=== PATIENT | female | born 1965 | race Caucasian/White ===

== ENCOUNTER 2016-08-25 09:29 | Emergency (ER) | payer OTHER ==
[~2016-08-25] VITALS: Ht 167.6 cm; Wt 70.9 kg
[2016-08-25 09:40] VITALS: Ht 167.6 cm; Wt 70.9 kg
[2016-08-25] MEDS ORDERED: ACETAMINOPHEN 325 MG TAB PO STA (10:19)
--- NOTE | 2016-08-25 10:25 | EMERGENCY ROOM VISIT NOTE ---
History Report prepared by Opal: Gunner Wong Under the Supervision of: Dr. Beni Lancaster M.D. First contact with patient: 10:13 Chief Complaint: HEAD INJURY (MINOR) Stated Complaint: HEAD INJURY History of Present Illness The patient is a 51 year old female who presents to the Emergency Room with complaints of a head injury that occurred 1 hour ago. She rates her current pain a 9/10 in severity. She was spectating a volleyball game at this time, when she got struck in the head with a volleyball. She notes that at this time, she did not lose consciousness. However, she did have globalized numbness when this occurred, and she could not talk. These symptoms have resolved at this time. She denies any visual changes, numbness, dental pain, epistaxis, ear drainage, chest pain, neck pain, abdominal pain, or back pain. She has a past medical history of a thyroid issue, vertigo, and migraines. She notes that she has been healthy recently. Source of History: patient, friend Onset: 1 hour ago Position: head Symptom Intensity: 9/10 Quality: ache Timing: constant Associated Symptoms: No LOC, No abdominal pain, No back pain, No chest pain , No neck pain, No numbness Note: She denies any epistaxis, ear drainage, or dental pain. Review of Systems See HPI for pertinent positives & negatives. A total of 10 systems reviewed and were otherwise negative. Past Medical & Surgical Medical Problems: (1) Migraines (2) Thyroid disease (3) Vertigo Old medical records were reviewed. Nurse's notes were reviewed and I agree with. Family History Patient reports no known family medical history. Social History Smoking Status: Never Smoker Smokeless Tobacco Use: No Drug Use: none Marital Status: Housing Status: lives with family Occupation Status: employed Current/Historical Medications Scheduled Levothyroxine Sodium (Synthroid), 125 MCG PO DAILY Allergies Coded Allergies: No Known Allergies (Unverified , 08/25/16) Physical Exam Vital Signs Date Time Temp Pulse Resp B/P Pulse Ox O2 Delivery O2 Flow Rate FiO2 08/25/16 11:42 65 16 128/76 100 08/25/16 10:41 66 18 141/83 100 Room Air 08/25/16 09:40 71 14 142/91 100 Room Air 08/25/16 09:40 14 Physical Exam General: Non ill appearing middle aged female. Well developed well nourished in no acute distress, breathing comfortably on room air. Normal speech HEENT: Normal cephalic atraumatic. Pupils are equal round and reactive to light. Extraocular movements are intact. Oropharynx is pink with moist mucous membranes. No swelling of the mouth lips or tongue. Neck: Supple with a midline trachea. No meningeal signs or stiffness, no JVD or bruits. No Stridor. Chest: Clear to auscultation bilaterally. No wheezes or rhonchi. No increased work of breathing. Heart: regular rate and rhythm. Abdomen: Soft nontender, nondistended without rebound guarding or rigidity. Extremities: No cyanosis clubbing or edema. No calf tenderness or assymetry Spine/Back. Non tender to palpation. No CVA tenderness Skin: Good turgor without rashes. Neurologic exam: Cranial nerves two through 12 are intact. Motor and sensation are intact and symmetrical throughout. GCS of 15. No tremor or pronator drift. Medical Decision & Procedures ER Provider Diagnostic Interpretation: Radiology results as stated below per my review and radiologist interpretation: CT OF THE HEAD WITHOUT CONTRAST CLINICAL HISTORY: Severe headache following trauma. COMPARISON STUDY: No previous studies for comparison. TECHNIQUE: Helical axial images of the head were obtained without IV contrast. Automated exposure control was utilized for the study. FINDINGS: No acute intracranial hemorrhage, midline shift or mass effect is present. Ventricular system is unremarkable. There is fullness at the level the foramen magnum. This is chronic. There are no extra axial collections. Snow-white differentiation is maintained. There is no calvarial fracture. IMPRESSION: 1. No acute intracranial findings. 2. No calvarial fracture. Electronically signed by: Ollie Dominguez M.D. 08/25/2016 11:09 AM Dictated Date/Time: 08/25/2016 11:[address] OF THE CERVICAL SPINE WITHOUT CONTRAST CLINICAL HISTORY: Trauma. COMPARISON STUDY: No previous studies for comparison. TECHNIQUE: Helical axial images of the cervical spine were obtained without IV contrast. Sagittal and coronal reconstructions were viewed. FINDINGS: Alignment of the cervical spine is anatomic. Vertebral body heights are maintained. There is no acute fracture. There is moderate multilevel degenerative disc disease and mild multilevel facet arthrosis. There is no prevertebral edema. IMPRESSION: No acute cervical spine fracture or subluxation. Electronically signed by: Ollie Dominguez M.D. 08/25/2016 11:12 AM Dictated Date/Time: 08/25/2016 11:09 AM Medications Administered Medications (Trade) Dose Ordered Sig/Lia Route Start Time Stop Time Status Last Admin Dose Admin Acetaminophen (Tylenol Tab) 650 mg NOW STAT PO 08/25/16 10:19 08/25/16 10:21 DC 08/25/16 10:40 650 MG ED Course 1013: Past medical records reviewed. The patient was evaluated in room B2, and a complete history and physical examination were performed. 1019: Ordered Tylenol Tab 650 mg PO 1100: The patient looks well. We are waiting on her CT results. 1115: We discussed her results. She is feeling better. 1145: Upon reevaluation, the patient is resting. I discussed the results and treatment plan with her. She verbalized agreement of the treatment plan. The patient was discharged home. Medical Decision Differentials include concussion, cervical strain, cervical fracture, vascular injury, intracranial hemorrhage, and skull fracture. Medication Reconciliation: I attest that I have personally reviewed the patient' s current medication list. Blood pressure Screening: Patient was found to have normal blood pressure on discharge screening and does not require follow-up. Initially, her pressure was mildly elevated which was believed to be secondary to pain. This patient comes in as described above she was hit in head with a volleyball and had severe headache afterwards. She had a vasovagal episode. She has started to feel better. She does have a headache. She was given Tylenol she has a normal neurologic exam. She has no trauma the chest abdomen or pelvis. I discussed the risks and benefits and we did do a CAT scan of her head and neck. This was unremarkable. Clinically she does have mild concussion she is feeling better. She would like to go home. I will discharge her home and she can use acetaminophen and [id number] dosages but no do not exceed over-the -counter dosages. Return if: Increasing pain, not acting like self, numbness or weakness, any new problems or concerns. She was happy with plan and discharged to home. Impression Primary Impression: Concussion Additional Impression: Cervical strain Scribe Attestation The scribe's documentation has been prepared under my direction and personally reviewed by me in its entirety. I confirm that the note above accurately reflects all work, treatment, procedures, and medical decision making performed by me. Departure Information Dispostion Home / Self-Care Referrals No Doctor, Assigned (PCP) Forms HOME CARE DOCUMENTATION FORM, IMPORTANT VISIT INFORMATION Patient Instructions Concussion, My [facility] Additional Instructions Drink plenty of fluids. Follow-up with your doctor when he home this week Return if increasing pain, not acting like self, vomiting, any new problems or concerns. May use acetaminophen/Tylenol a maximum of 650 mg every 6 hours if needed for pain. Do not take with any other medications that contain acetaminophen/Tylenol Problem Qualifiers
--- NOTE | 2016-08-25 11:10 | DIAGNOSTIC IMAGING REPORT ---
CT OF THE HEAD WITHOUT CONTRAST CLINICAL HISTORY: Severe headache following trauma. COMPARISON STUDY: No previous studies for comparison. TECHNIQUE: Helical axial images of the head were obtained without IV contrast. Automated exposure control was utilized for the study. FINDINGS: No acute intracranial hemorrhage, midline shift or mass effect is present. Ventricular system is unremarkable. There is fullness at the level the foramen magnum. This is chronic. There are no extra axial collections. Snow-white differentiation is maintained. There is no calvarial fracture. IMPRESSION: 1. No acute intracranial findings. 2. No calvarial fracture. Electronically signed by: Ollie Dominguez M.D. 08/25/2016 11:09 AM Dictated Date/Time: 08/25/2016 11:07 AM
--- NOTE | 2016-08-25 11:13 | DIAGNOSTIC IMAGING REPORT ---
CT OF THE CERVICAL SPINE WITHOUT CONTRAST CLINICAL HISTORY: Trauma. COMPARISON STUDY: No previous studies for comparison. TECHNIQUE: Helical axial images of the cervical spine were obtained without IV contrast. Sagittal and coronal reconstructions were viewed. FINDINGS: Alignment of the cervical spine is anatomic. Vertebral body heights are maintained. There is no acute fracture. There is moderate multilevel degenerative disc disease and mild multilevel facet arthrosis. There is no prevertebral edema. IMPRESSION: No acute cervical spine fracture or subluxation. Electronically signed by: Ollie Dominguez M.D. 08/25/2016 11:12 AM Dictated Date/Time: 08/25/2016 11:09 AM
[2016-08-25 11:42] VITALS: BP 128/76; PULSE 65; O2SAT 100
[2016-08-25] MEDS ORDERED: LEVO125T72 PO (11:42)
== END 2016-08-25 11:45 | disposition home or self-care (01) ==
LOC: EDBD 09:29 → C.EDC 09:31 → C.EDB 11:45
DX: S06.0X0A Concussion without loss of consciousness, initial encounter (principal); S16.1XXA Strain of muscle, fascia and tendon at neck level, initial encounter; W21.06XA Struck by volleyball, initial encounter; E07.9 Disorder of thyroid, unspecified; R42 Dizziness and giddiness